=== PATIENT | female | born 1995 | race Caucasian/White ===

== ENCOUNTER 2020-02-29 22:03 | Emergency (ER) | payer BC ==
[~2020-02-29] VITALS: Ht 172.7 cm; Wt 65.8 kg
[2020-02-29 22:20] VITALS: BP 119/68
== END 2020-02-29 22:51 | disposition home or self-care (01) ==
LOC: ER 22:18
DX: S61.210A Laceration without foreign body of right index finger without damage to nail, initial encounter (principal); W26.0XXA Contact with knife, initial encounter; Y93.89 Activity, other specified; Y92.89 Other specified places as the place of occurrence of the external cause; Y99.8 Other external cause status